=== PATIENT | female | born 1950 | race Caucasian/White ===

== ENCOUNTER 2025-02-28 23:44 | Emergency (ER) | payer MEDICARE, SELFPAY ==
--- NOTE | ~2025-02-28 | XR_ITS ---
EXAMINATION: XR TMJ BI DATE: 03/01/2025 08:27 INDICATION: Retained foreign body in the right ear which is not seen on exam. TECHNIQUE: Patency of the mandible and open and closed mouth lateral views of the left and right temp oromandibular joints were obtained. COMPARISON: None. FINDINGS: Dental restorations at a couple of the remaining teeth along the anterior mandible. Additional tiny m etallic foreign body along the left mandibular ramus. The majority of the teeth are absent with secon los alveolar ridge resulting changes. No other radiopaque foreign bodies. No fracture. Normal alignm ent and motion at the bilateral temporomandibular joints. Slight superior well-pneumatized and there are no air-fluid levels in the mastoids are paranasal sinuses. IMPRESSION: 1. No radiopaque foreign bodies in the region of the external auditory canals. Reviewed, dictated and finalized at location A.
[2025-03-01 00:06] VITALS: BP 86/66; PULSE 72; RESP 16; TEMP 36.7; O2SAT 94
--- OUTSIDE RECORDS SUMMARY | 2025-03-01 07:42 | XMS_ITS | Encounter Summary ---
Author Organization [facility] Address [address] [place] [address] Care Team Providers Care Endless Steamer Tender Name Role Phone Radha Martin MD Primary Care Provider Encounter Details Date Type Department Care Team (Latest Contact Info) Description 11/03/2000 Outpatient Historical HIS [facility] Steven Morris MD [address] [address] Encounter for long-term (current) use of other medications (Primary Dx) Social History Tobacco Use Types Packs/Day Years Used Date Smoking Tobacco: Never Assessed Comments Unknown Sex and Gender Information Value Date Recorded Sex Assigned at Not on file Legal Sex Female 5:15 AM HOME HEALTH CLINICIAN Gender Identity Not on file Sexual Orientation Not on file documented as of this encounter Plan of Treatment Upcoming Encounters Date Type Department Care Team (Late st Contact Info) Description 03/05/2025 1:00 PM CDT Office Visit [facility] [address] [address] Rola Orourke MD [address] [facility] [address] [place] [address] 03/07/2025 1:00 PM CDT Office Visit [facility] Neurosurgery - Medical [place] [address] [facility] [address] [place] [address] Shirley Lux PA [address] [facility] [address] [place] [address] 04/01/2025 2:00 PM CDT Office Visit [facility] Eye Specialists - [facility] [address] - Ophthalmology [address] [facility] [address] [place] [address] Ricky Almazan MD [address] [facility] [address] [place] [address] 05/29/2025 2:30 PM CDT Office Visit [facility] [address] [place] [address] Radha Martin MD [address] [place] [address] 08/28/2025 2:00 PM HOME HEALTH CLINICIAN Office Visit [facility] [address] [address] Radha Martin MD [address] [place] [phone] documented as of this encounter Visit Diagnoses Diagnosis Encounter for long-term (current) use of other medications- Primary documented in this encounter Care Teams Endless Steamer Tender Relationship Specialty Start Date End Date Radha Martin MD [address] [place] [phone] PCP - General Family Practice 11/14/24 documented as of this encounter
--- OUTSIDE RECORDS SUMMARY | 2025-03-01 07:42 | XMS_ITS | Encounter Summary ---
Author Organization [facility] Address [address] [place] [address] Care Team Providers Care Dramatic Director Name Role Phone Radha Martin MD Primary Care Provider Encounter Details Date Type Department Care Team (Late st Contact Info) Description 09/18/[address] [facility] Spine and Pain Management at the [facility] Medicine [address] [place] [address] Richard Moya MD [address] [facility] [place] [address] Social History Tobacco Use Types Packs/Day Years Used Date Smoking Tobacco: Never Smokeless Tobacco: Never Alcohol Use Standard Drinks/Week Comments Never 0 (1 standard drink = 0.6 oz pur e alcohol) Financial Resource Strain Answer Date R ecorded How hard is it for you to pa y for the very basics like food, housing, medical care, and heating? Somewhat hard 12/06/2022 Food Insecurity Answer Date Recorded In the past 12 months, have you worried that your food would run out before you had money to buy more? Patient declined 2022 In the past 12 months, did y ou run out of food and didn't have money to buy more? Patient declined 12/06/2022 Transportation Needs Answer Date Record ed In the past 12 months, has l ack of transportation kept you from medical appointments or from getting medications? Patient declined 12/06/2022 Lack of Transportation (Non-Medical) Not on file 12/06/2022 Comments No Sex and Gender Information Value Date Recorded Sex Assigned at Not on file Legal Sex Female 5:15 AM EQUAL OPPORTUNITY SPECIALIST Gender Identity Not on file Sexual Orientation Not on file documented as of this encounter Plan of Treatment Upcoming Encounters Date Type Department Care Team (Late st Contact Info) Description 03/05/2025 1:00 PM CDT Office Visit [facility] [address] [place] [address] Rola Orourke MD [address] [place] [address] [address] [place] [address] 03/07/2025 1:00 PM CDT Office Visit [facility] Neurosurgery - Medical [place] [address] [place] [address] Shirley Lux PA [address] [facility] [address] [place] [address] 04/01/2025 2:00 PM CDT Office Visit [facility] Eye Specialists - [facility] - Ophthalmology [address] [facility] [address] [place] [address] Ricky Almazan MD [address] [facility] [address] [place] [address] 05/29/2025 2:30 PM CDT Office Visit [facility] [address] [place] [place] [address] Radha Martin MD [address] [place] [address] 08/28/2025 2:00 PM EQUAL OPPORTUNITY SPECIALIST Office Visit [facility] [address] [address] Radha Martin MD [address] [address] documented as of this encounter Visit Diagnoses Not on filedocumented in this encounter Additional Health Concerns Assessment Noted Time PHQ-9 Depression Total Score: 1 12/06/19 23 8:11 PM EQUAL OPPORTUNITY SPECIALIST documented as of this encounter Care Teams Dramatic Director Relationship Specialty Start Date End Date Radha Martin MD [address] [address] PCP - General Family Practice 11/14/24 documented as of this encounter
--- OUTSIDE RECORDS SUMMARY | 2025-03-01 07:42 | XMS_ITS | Encounter Summary ---
Author Organization [employer] Address [address] [place] [address] Care Team Providers Care Medicaid Nurse Name Role Phone Radha Martin MD Primary Care Provider Encounter Details Date Type Department Care Team (Latest Contact Info) Description 06/16/2004 Outpatient Historical HIS [facility] [place], Diana Kuo MD NO ADDRESS ON FILE SYMPTOMATIC FEMALE CLIMACTERIC STATE (Primary Dx) Social History Tobacco Use Types Packs/Day Years Used Date Smoking Tobacco: Never Assessed Comments Unknown Sex and Gender Information Value Date Recorded Sex Assigned at Not on file Legal Sex Female 5:15 AM MATERIAL ENGINEER Gender Identity Not on file Sexual Orientation Not on file documented as of this encounter Plan of Treatment Upcoming Encounters Date Type Department Care Team (Late st Contact Info) Description 03/05/2025 1:00 PM CDT Office Visit [facility] [address] [place] [address] Rola Orourke MD [address] [place] [address] [address] [place] [address] 03/07/2025 1:00 PM CDT Office Visit [facility] Neurosurgery - Medical [place] [address] [facility] [address] [place] [address] Shirley Lux PA [address] [facility] [address] [place], [place] [id number] 04/01/2025 2:00 PM CDT Office Visit [facility] Eye Specialists - [address] - Ophthalmology [address] [facility] [address] [place] [address] Ricky Almazan MD [address] [facility] [address] [place] [address] 05/29/2025 2:30 PM CDT Office Visit [facility] [address], [place] [address] Radha Martin MD [address] [place] [address] 08/28/2025 2:00 PM MATERIAL ENGINEER Office Visit [facility] [address] [address] Radha Martin MD [address] [place] [address] documented as of this encounter Visit Diagnoses Diagnosis Symptomatic menopausal or female climacteric states- Primary documented in this encounter Care Teams Medicaid Nurse Relationship Specialty Start Date End Date Radha Martin MD [address] [place] [address] [address] [address] PCP - General Family Practice 11/14/24 documented as of this encounter
--- OUTSIDE RECORDS SUMMARY | 2025-03-01 07:42 | XMS_ITS | Encounter Summary ---
Author Organization [employer] Address [address] [place] [address] Care Team Providers Care Service Attendant Name Role Phone Radha Martin MD Primary Care Provider Encounter Details Date Type Department Care Team (Latest Contact Info) Description 06/03/2005 Outpatient Historical HIS [facility] [place], Diana Kuo MD NO ADDRESS ON FILE SCREENING MAMM-MAILG NEOPL NEC (Primary Dx) Social History Tobacco Use Types Packs/Day Years Used Date Smoking Tobacco: Never Assessed Comments Unknown Sex and Gender Information Value Date Recorded Sex Assigned at Not on file Legal Sex Female 5:15 AM TRUCK DRIVER INSTRUCTOR Gender Identity Not on file Sexual Orientation Not on file documented as of this encounter Plan of Treatment Upcoming Encounters Date Type Department Care Team (Late st Contact Info) Description 03/05/2025 1:00 PM CDT Office Visit [facility] [address] [place] [address] Rola Orourke MD [address] [place] [address] [address] [place] [address] 03/07/2025 1:00 PM CDT Office Visit [facility] Neurosurgery - Medical [place] [address] [facility] [address] [place] [address] Shirley Lux PA [address] [facility] [address] [place], [place] [id number] 04/01/2025 2:00 PM CDT Office Visit [facility] Eye Specialists - [facility] - Ophthalmology [address] [place] [address] Ricky Almazan MD [address] [place] [address] 05/29/2025 2:30 PM CDT Office Visit [facility] [address] [address] Radha Martin MD [address] [place] [address] 08/28/2025 2:00 PM TRUCK DRIVER INSTRUCTOR Office Visit [facility] [address] [address] Radha Martin MD [address] [place] [address] documented as of this encounter Visit Diagnoses Diagnosis Other screening mammogram- Primary documented in this encounter Care Teams Service Attendant Relationship Specialty Start Date End Date Radha Martin MD [address] [place] [address] PCP - General Family Practice 11/14/24 documented as of this encounter
--- OUTSIDE RECORDS SUMMARY | 2025-03-01 07:42 | XMS_ITS | Encounter Summary ---
Author Organization [facility] Address [address] [place] [address] Care Team Providers Care Stringing Machine Tender Name Role Phone Radha Martin MD Primary Care Provider Encounter Details Date Type Department Care Team (Latest Contact Info) Description 04/04/2000 Outpatient Historical [facility] Baylee Peterson MD NO ADDRESS ON FILE Pain in limb (Primary Dx) Social History Tobacco Use Types Packs/Day Years Used Date Smoking Tobacco: Never Assessed Comments Unknown Sex and Gender Information Value Date Recorded Sex Assigned at Not on file Legal Sex Female 5:15 AM PHARMACIST PER DIEM Gender Identity Not on file Sexual Orientation Not on file documented as of this encounter Plan of Treatment Upcoming Encounters Date Type Department Care Team (Late st Contact Info) Description 03/05/2025 1:00 PM CDT Office Visit [facility] [address] [place] [address] Rola Orourke MD [facility] [address] [place] [address] 03/07/2025 1:00 PM CDT Office Visit [facility] Neurosurgery - Medical [place] [address] [facility] [address] [place] [address] Shirley Lux PA [address] [facility] [address] [place], [place] [id number] 04/01/2025 2:00 PM CDT Office Visit [facility] Eye Specialists - [address] - Ophthalmology [address] [facility] [address] [place] [address] Ricky Almazan MD [address] [facility] [address] [place] [address] 05/29/2025 2:30 PM CDT Office Visit [facility] [address] [address] Radha Martin MD [address] [place] [address] 08/28/2025 2:00 PM PHARMACIST PER DIEM Office Visit [facility] [address] [address] Radha Martin MD [address] [place] [phone] documented as of this encounter Visit Diagnoses Diagnosis Pain in limb- Primary documented in this encounter Care Teams Stringing Machine Tender Relationship Specialty Start Date End Date Radha Martin MD [address] [place] [phone] PCP - General Family Practice 11/14/24 documented as of this encounter
--- OUTSIDE RECORDS SUMMARY | 2025-03-01 07:42 | XMS_ITS | Encounter Summary ---
Author Organization [employer] Address [address] [place] [address] Care Team Providers Care Trap Setter Name Role Phone Radha Martin MD Primary Care Provider Encounter Details Date Type Department Care Team (Latest Contact Info) Description 05/16/2000 Outpatient Historical [facility] Baylee Peterson MD NO ADDRESS ON FILE Pain in limb (Primary Dx) Social History Tobacco Use Types Packs/Day Years Used Date Smoking Tobacco: Never Assessed Comments Unknown Sex and Gender Information Value Date Recorded Sex Assigned at Not on file Legal Sex Female 5:15 AM SWINE EXTENSION FIELD SPECIALIST Gender Identity Not on file Sexual Orientation Not on file documented as of this encounter Plan of Treatment Upcoming Encounters Date Type Department Care Team (Late st Contact Info) Description 03/05/2025 1:00 PM CDT Office Visit [facility] [address] [place] [address] Rola Orourke MD [facility] [address] [place] [address] 03/07/2025 1:00 PM CDT Office Visit [facility] Neurosurgery - Medical [place] [address] [facility] [address] [place] [address] Shirley Lux PA [address] [facility] [address] [place], [place] [id number] 04/01/2025 2:00 PM CDT Office Visit [facility] Eye Specialists - [address] - Ophthalmology [address] [facility] [address] [place] [address] Ricky Almazan MD [address] [facility] [address] [place] [address] 05/29/2025 2:30 PM CDT Office Visit [facility] [address] [address] Radha Martin MD [address] [place] [address] 08/28/2025 2:00 PM SWINE EXTENSION FIELD SPECIALIST Office Visit [facility] [address] [address] Radha Martin MD [address] [place] [phone] documented as of this encounter Visit Diagnoses Diagnosis Pain in limb- Primary documented in this encounter Care Teams Trap Setter Relationship Specialty Start Date End Date Radha Martin MD [address] [place] [address] PCP - General Family Practice 11/14/24 documented as of this encounter
--- OUTSIDE RECORDS SUMMARY | 2025-03-01 07:42 | XMS_ITS | Encounter Summary ---
Author Organization [employer] Address [address] [place] [address] Care Team Providers Care Recovery Assistant Name Role Phone Radha Martin MD Primary Care Provider Encounter Details Date Type Department Care Team (Latest Contact Info) Description 03/15/2007 Outpatient Historical HIS [facility] DAY[facility] [place], Diana Kuo MD NO ADDRESS ON FILE Other Screening Mammogram (Primary Dx) Social History Tobacco Use Types Packs/Day Years Used Date Smoking Tobacco: Never Assessed Comments Unknown Sex and Gender Information Value Date Recorded Sex Assigned at Not on file Legal Sex Female 5:15 AM TRAFFIC WORKFORCE REPRESENTATIVE Gender Identity Not on file Sexual Orientation Not on file documented as of this encounter Plan of Treatment Upcoming Encounters Date Type Department Care Team (Late st Contact Info) Description 03/05/2025 1:00 PM CDT Office Visit [facility] [address] [place] [address] Rola Orourke MD [address] [place] [address] [address] [place] [address] 03/07/2025 1:00 PM CDT Office Visit [facility] Neurosurgery - Medical [place] [address] [facility] [address] [place] [address] Shirley Lux PA [address] [facility] [address] [place], [place] [id number] 04/01/2025 2:00 PM CDT Office Visit [facility] Eye Specialists - [address] - Ophthalmology [address] [facility] [address] [place] [address] Ricky Almazan MD [address] [facility] [address] [place] [address] 05/29/2025 2:30 PM CDT Office Visit [facility] [address] [address] Radha Martin MD [address] [place] [address] 08/28/2025 2:00 PM TRAFFIC WORKFORCE REPRESENTATIVE Office Visit [facility] [address] [address] Radha Martin MD [address] [place] [address] documented as of this encounter Visit Diagnoses Diagnosis Other screening mammogram- Primary documented in this encounter Care Teams Recovery Assistant Relationship Specialty Start Date End Date Radha Martin MD [address] [place] [address] PCP - General Family Practice 11/14/24 documented as of this encounter
--- OUTSIDE RECORDS SUMMARY | 2025-03-01 07:42 | XMS_ITS | Encounter Summary ---
Author Organization [employer] Address [address] [place] [address] Care Team Providers Care Waistband Setter Name Role Phone Radha Martin MD Primary Care Provider Encounter Details Date Type Department Care Team (Latest Contact Info) Description 2000 Outpatient Historical [facility] Baylee Peterson MD NO ADDRESS ON FILE Pain in limb (Primary Dx) Social History Tobacco Use Types Packs/Day Years Used Date Smoking Tobacco: Never Assessed Comments Unknown Sex and Gender Information Value Date Recorded Sex Assigned at Not on file Legal Sex Female 5:15 AM BEAUTY ADVISOR Gender Identity Not on file Sexual Orientation Not on file documented as of this encounter Plan of Treatment Upcoming Encounters Date Type Department Care Team (Late st Contact Info) Description 03/05/2025 1:00 PM CDT Office Visit [facility] [address] [place] [address] Rola Orourke MD [facility] [address] [place] [address] 03/07/2025 1:00 PM CDT Office Visit [facility] Neurosurgery - Medical [place] [address] [facility] [address] [place] [address] Shirley Lux PA [address] [facility] [address] [place], [place] [id number] 04/01/2025 2:00 PM CDT Office Visit [facility] Eye Specialists - [address] - Ophthalmology [address] [facility] [address] [place] [address] Ricky Almazan MD [address] [facility] [address] [place] [address] 05/29/2025 2:30 PM CDT Office Visit [facility] [address] [address] Radha Martin MD [address] [place] [address] 08/28/2025 2:00 PM BEAUTY ADVISOR Office Visit [facility] [address] [address] Radha Martin MD [address] [place] [address] documented as of this encounter Visit Diagnoses Diagnosis Pain in limb- Primary documented in this encounter Care Teams Waistband Setter Relationship Specialty Start Date End Date Radha Martin MD [address] [place] [address] PCP - General Family Practice 11/14/24 documented as of this encounter
--- OUTSIDE RECORDS SUMMARY | 2025-03-01 07:42 | XMS_ITS | Encounter Summary ---
Author Organization [facility] Address [address] [place] [address] Care Team Providers Care Manager Product Support Name Role Phone Radha Martin MD Primary Care Provider Encounter Details Date Type Department Care Team (Late st Contact Info) Description 03/08/2002 Outpatient Historical HIS [facility]O Cardenas, Nicole Griffiths MD NO ADDRESS ON FILE ABNORMAL WEIGHT GAIN (Primary Dx) Social History Tobacco Use Types Packs/Day Years Used Date Smoking Tobacco: Never Assessed Comments Unknown Sex and Gender Information Value Date Recorded Sex Assigned at Not on file Legal Sex Female 5:15 AM INFANT AND TODDLER TEACHER Gender Identity Not on file Sexual Orientation Not on file documented as of this encounter Plan of Treatment Upcoming Encounters Date Type Department Care Team (Late st Contact Info) Description 03/05/2025 1:00 PM CDT Office Visit [facility] [address] [place] [address] Rola Orourke MD [address] [place] [address] [address] [place] [address] 03/07/2025 1:00 PM CDT Office Visit [facility] Neurosurgery - Medical [place] [address] [facility] [address] [place] [address] Shirley Lux PA [address] [facility] [address] [place], [place] [phone] 04/01/2025 2:00 PM CDT Office Visit [facility] Eye Specialists - [address] - Ophthalmology [address] [facility] [address] [place] [address] Ricky Almazan MD [address] [facility] [address] [place] [address] 05/29/2025 2:30 PM CDT Office Visit [facility] [address] [address] Radha Martin MD [address] [place] [address] 08/28/2025 2:00 PM INFANT AND TODDLER TEACHER Office Visit [facility] [address] [address] Radha Martin MD [address] [place] [address] documented as of this encounter Visit Diagnoses Diagnosis Abnormal weight gain- Primary documented in this encounter Care Teams Manager Product Support Relationship Specialty Start Date End Date Radha Martin MD [address] [place] [address] PCP - General Family Practice 11/14/24 documented as of this encounter
--- OUTSIDE RECORDS SUMMARY | 2025-03-01 07:42 | XMS_ITS | Encounter Summary ---
Author Organization [employer] Address [address] [place] [address] Care Team Providers Care Cardiovascular Sonographer Name Role Phone Radha Martin MD Primary Care Provider Encounter Details Date Type Department Care Team (Latest Contact Info) Description 06/05/2006 Outpatient Historical HIS [facility] [place], Diana Kuo MD NO ADDRESS ON FILE Other Screening Mammogram (Primary Dx) Social History Tobacco Use Types Packs/Day Years Used Date Smoking Tobacco: Never Assessed Comments Unknown Sex and Gender Information Value Date Recorded Sex Assigned at Not on file Legal Sex Female 5:15 AM ORACLE ARCHITECT Gender Identity Not on file Sexual Orientation Not on file documented as of this encounter Plan of Treatment Upcoming Encounters Date Type Department Care Team (Late st Contact Info) Description 03/05/2025 1:00 PM CDT Office Visit [facility] [address] [place] [address] Rola Orourke MD [address] [place] [address] [address] [place] [address] 03/07/2025 1:00 PM CDT Office Visit [facility] Neurosurgery - Medical [place] [address] [facility] [address] [place] [address] Shirley Lxu PA [address] [facility] [address] [place], [place] [id number] 04/01/2025 2:00 PM CDT Office Visit [facility] - [address] - Ophthalmology [address] [facility] [address] [place] [phone] Ricky Almazan MD [address] [facility] [address] [place] [address] 05/29/2025 2:30 PM CDT Office Visit [facility] [address] [address] Radha Martin MD [address] [place] [address] 08/28/2025 2:00 PM ORACLE ARCHITECT Office Visit [facility] [address] [address] Radha Martin MD [address] [place] [address] documented as of this encounter Visit Diagnoses Diagnosis Other screening mammogram- Primary documented in this encounter Care Teams Cardiovascular Sonographer Relationship Specialty Start Date End Date Radha Martin MD [address] [place] [address] PCP - General Family Practice 11/14/24 documented as of this encounter
--- OUTSIDE RECORDS SUMMARY | 2025-03-01 07:42 | XMS_ITS | Encounter Summary ---
Author Organization [employer] Address [address] [place] [address] Care Team Providers Care Products Mechanical Design Engineer Name Role Phone Radha Martin MD Primary Care Provider Encounter Details Date Type Department Care Team (Latest Contact Info) Description 04/14/2000 Outpatient Historical HIS [facility] Baylee Peterson MD NO ADDRESS ON FILE Pain in limb (Primary Dx) Social History Tobacco Use Types Packs/Day Years Used Date Smoking Tobacco: Never Assessed Comments Unknown Sex and Gender Information Value Date Recorded Sex Assigned at Not on file Legal Sex Female 5:15 AM TOOL ROOM SUPERVISOR Gender Identity Not on file Sexual Orientation Not on file documented as of this encounter Plan of Treatment Upcoming Encounters Date Type Department Care Team (Late st Contact Info) Description 03/05/2025 1:00 PM CDT Office Visit [facility] [address] [place] [address] Rola Orourke MD [facility] [address] [place] [address] 03/07/2025 1:00 PM CDT Office Visit [facility] Neurosurgery - Medical [place] [address] [facility] [address] [place] [address] Shirley Lux PA [address] [facility] [address] [place], [place] [id number] 04/01/2025 2:00 PM CDT Office Visit [facility] Eye Specialists - [address] - Ophthalmology [address] [facility] [address] [place] [phone] Ricky Almazan MD [address] [facility] [address] [place] [address] 05/29/2025 2:30 PM CDT Office Visit [facility] [address] [address] Radha Martin MD [address] [place] [address] 08/28/2025 2:00 PM TOOL ROOM SUPERVISOR Office Visit [facility] [address] [address] Radha Martin MD [address] [place] [phone] documented as of this encounter Visit Diagnoses Diagnosis Pain in limb- Primary documented in this encounter Care Teams Products Mechanical Design Engineer Relationship Specialty Start Date End Date Radha Martin MD [address] [place] [address] PCP - General Family Practice 11/14/24 documented as of this encounter
--- OUTSIDE RECORDS SUMMARY | 2025-03-01 07:43 | XMS_ITS | Encounter Summary ---
Author Organization [email or web address] Address [address] [place] [address] Care Team Providers Care Market Research Coordinator Name Role Phone Radha Martin MD Primary Care Provider Encounter Details Date Type Department Care Team (Latest Contact Info) Description 07/26/2003 Outpatient Historical HIS [facility] GalabbetoCarrington rodriguez MD [address] [facility] [address] [place] [address] ENTHESOPATHY OF HIP (Primary Dx) Social History Tobacco Use Types Packs/Day Years Used Date Smoking Tobacco: Never Assessed Comments Unknown Sex and Gender Information Value Date Recorded Sex Assigned at Not on file Legal Sex Female 5:15 AM SPRING FORMER Gender Identity Not on file Sexual Orientation Not on file documented as of this encounter Plan of Treatment Upcoming Encounters Date Type Department Care Team (Late st Contact Info) Description 03/05/2025 1:00 PM CDT Office Visit [facility] [address] [place] [address] Rola Orourke MD [address] [facility] [address] [place] [address] 03/07/2025 1:00 PM CDT Office Visit [facility] Neurosurgery - Medical [place] [address] [facility] [address] [place] [address] Shirley Lux PA [address] [facility] [address] [place] [address] 04/01/2025 2:00 PM CDT Office Visit [facility] Eye Specialists - [facility] [address] - Ophthalmology [address] [facility] [address] [place] [address] Ricky Almazan MD [address] [facility] [address] [place] [address] 05/29/2025 2:30 PM CDT Office Visit [facility] [address] [place] [address] Radha Martin MD [address] [place] [address] 08/28/2025 2:00 PM SPRING FORMER Office Visit [facility] [address] [address] Radha Martin MD [address] [place] [phone] documented as of this encounter Visit Diagnoses Diagnosis Enthesopathy of hip region- Primary documented in this encounter Care Teams Market Research Coordinator Relationship Specialty Start Date End Date Radha Martin MD [address] [place] [phone] PCP - General Family Practice 11/14/24 documented as of this encounter
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
--- OUTSIDE RECORDS SUMMARY | 2025-03-01 07:43 | XMS_ITS | Encounter Summary ---
Author Organization [employer] Address 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) Social History Tobacco Use Types Packs/Day Years Used Date Smoking Tobacco: Never Assessed Comments Unknown Sex and Gender Information Value Date Recorded Sex Assigned at Not on file Legal Sex Female 5:15 AM SPOOLER RUBBER STRAND Gender Identity Not on file Sexual Orientation Not on file documented as of this encounter Plan of Treatment Upcoming Encounters Date Type Department Care Team (Late st Contact Info) Description 03/05/2025 1:00 PM CDT Office Visit [facility] [address] [place] [address] Rola Orourke MD [address] [place] [address] [address] [place] [address] 03/07/2025 1:00 PM CDT Office Visit [facility] Neurosurgery - Medical [place] [address] [facility] [address] [place] [address] Shirley Lux PA [address] [facility] [address] [place], [place] [id number] 04/01/2025 2:00 PM CDT Office Visit [facility] Eye Specialists - [facility] - Ophthalmology [address] [facility] [address] [place] [address] Ricky Almazan MD [address] [facility] [address] [place] [address] 05/29/2025 2:30 PM CDT Office Visit [facility] [address] [address] Radha Martin MD [address] [place] [address] 08/28/2025 2:00 PM SPOOLER RUBBER STRAND Office Visit [facility] [address] [address] Radha Martin MD [address] [place] [phone] documented as of this encounter Visit Diagnoses Diagnosis Abnormal Papanicolaou smear of cervix and cervical HPV- Primary documented in this encounter Care Teams Hemodialysis Patient Care Specialist Relationship Specialty Start Date End Date Radha Martin MD [address] [place] [address] PCP - General Family Practice 11/14/24 documented as of this encounter
--- OUTSIDE RECORDS SUMMARY | 2025-03-01 07:43 | XMS_ITS | Encounter Summary ---
Author Organization [facility] Address [address] [place] [address] Care Team Providers Care Coding Advisor Name Role Phone Radha Martin MD Primary Care Provider Reason for Visit * Reason Comments Provider Call Encounter Details Date Type Department Care Team (Late st Contact Info) Description 06/25/2024 Telephone [facility] Medicine [place] [address] [facility] [address] [place] [address] Rach Hardy, [address] [address] Provider Call Social History Tobacco Use Types Packs/Day Years [...] who hurts you emotionally and/or physically? No 05/28/2024 Comments No Sex and Gender Information Value Date Recorded Sex Assigned at Not on file Legal Sex Female 5:15 AM DRUPAL PHP DEVELOPER Gender Identity Not on file Sexual Orientation Not on file documented as of this encounter Miscellaneous Notes * Telephone Encounter - Rach Hardy DO - 06/27/2024 5:06 PM CDT Ok, approved. Please see orders from this encounter. JLK Orders Placed This Encounter ALPRAZolam (Xanax) 0.5 mg tablet * Telephone Encounter - Jessica Sales - 06/26/2024 10:29 AM CDT Alprazolam LR 06/09/2024 # 30 ([facility]) YARELIS 08/24/2023 Labs 03/01/2024 Appointment 07/17/24 * Telephone Encounter - Flor Crenshaw - 06/25/2024 3:26 PM CDT Copied from [facility] #[id number]. Topic: [id number] Call >> Jun 25, 2024 3:24 PM Flor Rivera wrote: Caller is requesting to speak with Clinical Care Team. Caller Name: riana castle [facility] pharmacy Callback Number: [phone] (home) [phone] (work) Clinician Type: Pharmacy - Medication Question Call Notes: ALPRAZolam (Xanax) 0.5 mg tablet refill request and statues of rx documented in this encounter Plan of Treatment Upcoming Encounters Date Type Department Care Team (Late st Contact Info) Description 03/05/2025 1:00 PM CDT Office Visit [facility] [address] [place] [phone] Rola Orourke MD [address] [place] [address] [address] [place] [address] 03/07/2025 1:00 PM CDT Office Visit [facility] Neurosurgery - Medical [place] [address] [facility] [address] [place] [address] Shirley Lux AL [address] [facility] [address] [place] [address] 04/01/2025 2:00 PM CDT Office Visit [facility] Eye Specialists - [facility] [address] - Ophthalmology [address] [facility] [address] [place] [address] Ricky Almazan MD [address] [facility] [address] [place] [address] 05/29/2025 2:30 PM CDT Office Visit [facility] [address] [place] [address] Radha Martin MD [address] [place] [phone] 08/28/2025 2:00 PM DRUPAL PHP DEVELOPER Office Visit [facility] [address] [place] [phone] Radha Martin MD [address] [place], [place] [address] [place] [address] documented as of this encounter Visit Diagnoses Diagnosis Insomnia, unspecified type documented in this encounter Additional Health Concerns Assessment Noted Time PHQ-9 Depression Total Score: 1 06/06/20 24 9:00 AM CDT documented as of this encounter Care Teams Coding Advisor Relationship Specialty Start Date End Date Radha Martin MD [facility] [address] [address] PCP - General Family Practice 11/14/24 documented as of this encounter
--- OUTSIDE RECORDS SUMMARY | 2025-03-01 07:43 | XMS_ITS | Encounter Summary ---
Author Organization [facility] Address [address] [place] [address] Care Team Providers Care Registered Dental Hygienist Name Role Phone Radha Martin MD Primary Care Provider Encounter Details Date Type Department Care Team (Late st Contact Info) Description 03/31/2000 Outpatient Historical HIS OP SPORTS & ORTHO BrodieSteven muñiz MD [address] [place] [address] Social History Tobacco Use Types Packs/Day Years Used Date Smoking Tobacco: Never Assessed Comments Unknown Sex and Gender Information Value Date Recorded Sex Assigned at Not on file Legal Sex Female 5:15 AM ICE HOCKEY COACH Gender Identity Not on file Sexual Orientation Not on file documented as of this encounter Plan of Treatment Upcoming Encounters Date Type Department Care Team (Late Contact Info) Description 03/05/2025 1:00 PM CDT Office Visit [facility] [address] [place] [address] Rola Orourke MD [address] [facility] [address] [place] [address] 03/07/2025 1:00 PM CDT Office Visit [facility] Neurosurgery - Medical [place] [address] [facility] [address] [place] [address] Shirley Lux PA [address] [facility] [address] [place] [address] 04/01/2025 2:00 PM CDT Office Visit [facility] Eye Specialists - [facility] - Ophthalmology [address] [facility] [address] [place] [address] Ricky Almazan MD [address] [facility] [address] [place] [address] 05/29/2025 2:30 PM CDT Office Visit [facility] [address] [place] [address] Radha Martin MD [address] [place] [address] 08/28/2025 2:00 PM ICE HOCKEY COACH Office Visit [facility] [address] [address] aRdha Martin MD [address] [place] [phone] documented as of this encounter Visit Diagnoses Not on filedocumented in this encounter Care Teams Registered Dental Hygienist Relationship Specialty Start Date End Date Radha Martin MD [address] [place] [phone] PCP - General Family Practice 11/14/24 documented as of this encounter
--- OUTSIDE RECORDS SUMMARY | 2025-03-01 07:43 | XMS_ITS | Encounter Summary ---
Author Organization [employer] Address [address] [place] [address] Care Team Providers Care Bone Puller Name Role Phone Radha Martin MD Primary Care Provider Encounter Details Date Type Department Care Team (Latest Contact Info) Description 01/20/2000 Outpatient Historical HIS [facility]UCLE[facility] Steven Calloway MD [address] [address] Pain in limb (Primary Dx) Social History Tobacco Use Types Packs/Day Years Used Date Smoking Tobacco: Never Assessed Comments Unknown Sex and Gender Information Value Date Recorded Sex Assigned at Not on file Legal Sex Female 5:15 AM CONCRETE PIPE MACHINE OPERATOR Gender Identity Not on file Sexual Orientation Not on file documented as of this encounter Plan of Treatment Upcoming Encounters Date Type Department Care Team (Late st Contact Info) Description 03/05/2025 1:00 PM CDT Office Visit [facility] [address] [place] [address] Rola Orourke MD [address] [facility] [address] [place] [address] 03/07/2025 1:00 PM CDT Office Visit [facility] Neurosurgery - Medical [place] [address] [facility] [address] [place] [address] Shirley Lux PA [address] [facility] [address] [place] [address] 04/01/2025 2:00 PM CDT Office Visit [facility] Eye Specialists - [facility] [address] - Ophthalmology [address] [facility] [address] [place] [address] Ricky Almazan MD [address] [facility] [address] [place] [address] 05/29/2025 2:30 PM CDT Office Visit [facility] [address], [place] [address] Radha Martin MD [address] [place] [address] 08/28/2025 2:00 PM CONCRETE PIPE MACHINE OPERATOR Office Visit [facility] [address] [address] Radha Martin MD [address] [place] [phone] documented as of this encounter Visit Diagnoses Diagnosis Pain in limb- Primary documented in this encounter Care Teams Bone Puller Relationship Specialty Start Date End Date Radha Martin MD [address] [place] [phone] PCP - General Family Practice 11/14/24 documented as of this encounter
--- OUTSIDE RECORDS SUMMARY | 2025-03-01 07:43 | XMS_ITS | Encounter Summary ---
Author Organization [employer] Address 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) Social History Tobacco Use Types Packs/Day Years Used Date Smoking Tobacco: Never Assessed Comments Unknown Sex and Gender Information Value Date Recorded Sex Assigned at Not on file Legal Sex Female 5:15 AM LIGHT OIL OPERATOR Gender Identity Not on file Sexual Orientation Not on file documented as of this encounter Plan of Treatment Upcoming Encounters Date Type Department Care Team (Late st Contact Info) Description 03/05/2025 1:00 PM CDT Office Visit [facility] [address] [place] [address] Rola Orourke MD [address] [place] [address] [address] [place] [address] 03/07/2025 1:00 PM CDT Office Visit [facility] Neurosurgery - Medical [place] [address] [facility] [address] [place] [address] Shirley Lux PA [address] [facility] [address] [place], [place] [id number] 04/01/2025 2:00 PM CDT Office Visit [facility]ists - [facility] - Ophthalmology [address] [place] [phone] Ricky Almazan MD [address] [place] [address] 05/29/2025 2:30 PM CDT Office Visit [facility] [address] [phone] Radha Martin MD [address] [place] [phone] 08/28/2025 2:00 PM LIGHT OIL OPERATOR Office Visit [facility] [address] [phone] Radha Martin MD [address] [place] [phone] documented as of this encounter Visit Diagnoses Diagnosis Abnormal Papanicolaou smear of cervix and cervical HPV- Primary documented in this encounter Care Teams Anaesthetic Technician Relationship Specialty Start Date End Date Radha Martin MD [address] [place] [phone] PCP - General Family Practice 11/14/24 documented as of this encounter
--- OUTSIDE RECORDS SUMMARY | 2025-03-01 07:43 | XMS_ITS | Encounter Summary ---
Author Organization [employer] [facility] Address [address] [place] [address] Care Team Providers Care Procedures Analyst Name Role Phone Radha Martin MD Primary Care Provider Encounter Details Date Type Department Care Team (Latest Contact Info) Description 05/26/2004 Outpatient Historical [facility] Malloy, Kelsey King MD NO ADDRESS ON FILE PURE HYPERCHOLESTEROLEM (Primary Dx) Social History Tobacco Use Types Packs/Day Years Used Date Smoking Tobacco: Never Assessed Comments Unknown Sex and Gender Information Value Date Recorded Sex Assigned at Not on file Legal Sex Female 5:15 AM CAREER DEVELOPMENT ENGINEER Gender Identity Not on file Sexual Orientation Not on file documented as of this encounter Plan of Treatment Upcoming Encounters Date Type Department Care Team (Late st Contact Info) Description 03/05/2025 1:00 PM CDT Office Visit [facility] [address] [place] [address] [facility] [facility] [address] [place] [address] 03/07/2025 1:00 PM CDT Office Visit [facility] Neurosurgery - Medical [place] [address] [facility] [address] [place] [address] Shirley Lux PA [address] [facility] [address] [place], [place] [id number] 04/01/2025 2:00 PM CDT Office Visit [facility] - [address] - Ophthalmology [address] [facility] [address] [place] [phone] Ricky Almazan MD [address] [facility] [address] [facility] [address] [place] [address] 05/29/2025 2:30 PM CDT Office Visit [facility] [address] [phone] Radha Martin MD [address] [place] [phone] 08/28/2025 2:00 PM CAREER DEVELOPMENT ENGINEER Office Visit [facility] [address] [phone] Radha Martin MD [address] [place] [phone] documented as of this encounter Visit Diagnoses Diagnosis Pure hypercholesterolemia- Primary documented in this encounter Care Teams Procedures Analyst Relationship Specialty Start Date End Date Radha Martin MD [address] [place] [phone] PCP - General Family Practice 11/14/24 documented as of this encounter
--- OUTSIDE RECORDS SUMMARY | 2025-03-01 07:43 | XMS_ITS | Clinical Summary ---
Author Organization [facility] e Address [address] [place] [address] Care Team Providers Care Senior Oracle Applications Developer Name Role Phone Radha Martin MD Primary Care Provider Allergies No known active allergies Medications Euthyrox 100 mcg tabletIndicati ons:Hypothyroi dism, unspecified type take 1 tablet every day 90 Tablet 3 03/25/20 24 Active Blood-Glucose Meter (Accu-Chek Guide Me Glucose Mtr)Indication s:Type 2 diabetes mellitus with hyperglycemia, without long-term current use of insulin (CMS/HCC) Use as directed 4 times a day 1 Each 1 06/18/20 24 Active DULoxetine (CYMBALTA) 60 mg Capsule, Delayed Release(E.C.)I ndications:Typ e 2 diabetes mellitus with diabetic polyneuropathy , without long-term current use of insulin (CMS/HCC) TAKE 1 CAPSULE EVERY DAY 100 Capsule 3 06/28/20 24 Active Lancing Device with Lancets (Accu-Chek Multiclix Lancet) KitIndications :Type 2 diabetes mellitus with diabetic polyneuropathy , without long-term current use of insulin (CMS/HCC) TEST BLOOD SUGAR 4 TIMES DAILY BEFORE MEALS AND AT BEDTIME 400 Each 3 07/18/20 24 Active blood sugar diagnostic (Accu-Chek Guide test strips) Strip TEST BLOOD SUGAR FOUR TIMES DAILY BEFORE MEALS AND AT BEDTIME 400 Strip 3 08/08/20 24 Active traZODone (DESYREL) 100 mg tablet TAKE 1 TABLET EVERY NIGHT NEEDED FOR INSOMNIA 100 Tablet 3 08/08/20 24 Active lisinopriL (PRINIVIL) 10 mg tablet Take 1 Tablet (10 mg) by mouth daily. 100 Tablet 3 11/22/19 25 Active tirzepatide (Mounjaro) 15 mg/0.5 mL Pen InjectorIndica tions:Type 2 diabetes mellitus with diabetic polyneuropathy , without long-term current use of insulin ([facility]) Inject 0.5 mL (15 mg) by subcutaneous injection every 7 days. 6 mL 3 11/28/19 25 Active dapagliflozin propanediol (Farxiga) 10 mg TabletIndicati ons:Stage 3a chronic kidney disease (CKD) ([facility]) Take 1 Tablet (10 mg) by mouth daily in the morning. 100 Tablet 3 11/29/19 25 Active atorvastatin (LIPITOR) 40 mg tablet Take 1 Tablet (40 mg) by mouth daily. 100 Tablet 3 01/10/20 25 Active ALPRAZolam (Xanax) 0.5 mg tabletIndicati ons:Insomnia, unspecified type,Postopera tive pain Take 1 Tablet (0.5 mg) by mouth 2 times daily as needed for Anxiety or Insomnia. 40 Tablet 5 12:29 PM CDT 02/27/20 25 Active tiZANidine (ZANAFLEX) 4 mg Tablet Take 1 Tablet (4 mg) by mouth 3 times daily as needed for Spasm. 60 Tablet 5 3:14 PM CDT 02/27/20 25 Active ciprofloxacin HCl (CIPRO) 500 mg tablet Take 1 Tablet (500 mg) by mouth every 12 hours for 6 days. 12 Tablet 5 3:14 PM CDT 02/27/20 25 2024 Active tamsulosin (FLOMAX) 0.4 mg capsule Take 1 Capsule (0.4 mg) by mouth daily after supper. 30 Capsule 5 3:14 PM CDT 02/27/20 25 Active methylPREDNISo lone (MEDROL DOSPACK) 4 mg Tablets, Dose Pack Take as directed 21 Tablet 5 3:14 PM CDT 02/27/20 25 Active ALPRAZolam (Xanax) 0.5 mg tabletIndicati ons:Insomnia, unspecified type Take 1 Tablet (0.5 mg) by mouth nightly as needed for Anxiety or Insomnia. 90 Tablet 10/24/19 25 2024 Discontinued(R eorder) multivitamin (DAILY-TOM) tablet Take 1 Tablet by mouth daily. 2024 Discontinued TURMERIC ORAL Take by mouth. 2024 Discontinued coenzyme Q10 Capsule Take 10 mg by mouth daily. 2024 Discontinued metFORMIN (GLUCOPHAGE) 850 mg tablet Take 1 Tablet (850 mg) by mouth daily with breakfast. DIABETES 100 Tablet 3 11/22/19 25 2024 Discontinued tiZANidine (ZANAFLEX) 4 mg Tablet Take 1 Tablet (4 mg) by mouth 3 times daily as needed for Spasm. 90 Tablet 1 01/02/20 25 2024 Discontinued Active Problems Problem Noted Date Diagnosed Date Acute cystitis without hematuria 02/26/2025 Constipation 02/11/2025 Acute urinary retention 02/11/2025 Anxiety 02/11/2025 Protein-calorie malnutrition, severe 02/09/2025 Lumbar stenosis 02/05/2025 Stage 3a chronic kidney disease 11/22/2024 Neurogenic claudication due to lumbar spinal salvador nosis 11/14/2024 Atherosclerosis of aorta 07/16/2024 Overview (11/14/2024): 12/09/22 CT Chest/ABD/PELVIS: Thoracic aorta is mildly atherosclerotic S/P total hysterectomy and bilateral salpingo-oo phorectomy 12/08/2021 Hypothyroidism 12/08/2021 Type 2 diabetes mellitus wit h diabetic polyneuropathy, without long-term current use of insulin 02/01/2021 Age-related osteoporosis wit hout current pathological fracture 01/17/2019 HTN (hypertension), benign 01/01/2018 Hyperlipidemia 01/01/2018 Insomnia 01/01/2018 Multiple thyroid nodules 01/01/2018 Peripheral polyneuropathy 01/01/2018 Resolved Problems Problem Noted Date Diagnosed Date Resolved Date Malignant neoplasm of left ovary 10/13/2022 10/13/2022 Mass of left ovary 02/09/2021 Generalized abdominal pain 01/25/2021 0 02/01/2021 Left tubo-ovarian mass 01/25/202112/08 Type 2 diabetes mellitus wit h hyperglycemia, without long-term current use of insulin 03/19/2020 02/01/2021 Severe obesity (BMI 35.0-39. 9) with comorbidity 01/01/2018 12/08/2021 Encounters Date Type Department Care Team Description 02/26/2025 Telephone [facility] [address] [place] [phone] Radha Martin MD Clinical Consult Before Scheduling 02/26/2025 Refill [facility] Neurosurgery - [facility] [place] [address] [facility] [address] [place] [address] Gavi Schmidt PA Postoperative pain (Primary Dx); Insomnia, unspecified type 02/25/2025 Telephone [facility] Neurosurgery - [facility] [place] [address] [facility] [address] [place] [phone] Moses Fontaine MD patient discharge concern 02/25/2025 Hospital Encounter [facility] Comprehensive Unit [address] [place] [address] Cecilio Pinzon, 02/24/2025 Abstract [facility] Neurosurgery - [facility] [place] [address] [facility] [address] [place] [address] Moses Fontaine MD 02/18/2025 External Device Data STL ABSTRACTION Provider, Abstract 02/14/2025 11:47 AM CDT Anesthesia Event [facility] Interventional Radiology S [facility] [address] [place] [address] Haley Gutierres MD 02/11/2025 External Device Data STL ABSTRACTION Provider, Abstract 02/11/2025 External Device Data STL ABSTRACTION Provider, Abstract 02/07/2025 Travel 02/05/2025 6:56 AM CDT Anesthesia Event [facility] Operating Room [address] [place] [address] Mariya Mueller MD Turnbough, Christopher J, PA 02/05/2025 6:30 AM CDT - 02/05/2025 11:13 AM CDT Surgery [facility] Operating Room [address] [place] [address] Moses Fontaine MD LUMBAR DECOMPRESSION LAMINECTOMY 02/05/2025 5:43 AM CDT - 02/26/2025 4:45 PM CDT Hospital Encounter [facility] Neurosurgery [address] [place] [address] Moses Fontaine MD Lumbar stenosis Discharge Disposition: Home or Self Care 01/24/2025 2:40 PM CDT - 01/24/2025 11:59 PM CDT Hospital Encounter [facility] S [facility] [address] [place] [address] Moses Fontaine MD Discharge Disposition: Home or Self Care 01/06/2025 Refill [facility] [address] [facility] [address] [place] [phone] Radha Martin MD Hyperlipidemia, unspecified hyperlipidemia type (Primary Dx) 01/03/2025 12:30 PM CDT - 01/03/2025 11:59 PM CDT Hospital Encounter [facility] CT Scan [address] [place] [address] Mayco Rangel MD Discharge Disposition: Home or Self Care 01/02/2025 Refill [facility] Physical Medicine and Rehabilitation - [place] [address] [place] [phone] Valdez العراقي Jr., MD 01/01/2025 Orders Only [facility] Physical Medicine and Rehabilitation - [place] [address] [place] [phone] Valdez العراقي Jr., MD 12/28/2024 Orders Only [facility] Integrated Provider [address] [place] [address] Mayco Rangel MD History of malignant neoplasm of ovary (Primary Dx) 12/24/2024 External Device Data STL ABSTRACTION Provider, Abstract 12/23/2024 External Device Data STL ABSTRACTION Provider, Abstract 12/20/2024 Prep for Surgery [facility] Neurosurgery - [facility] [address] [facility] [address] [place] [phone] Moses Fontaine MD Neurogenic claudication due to lumbar spinal stenosis (Primary Dx) 12/18/2024 External Device Data STL ABSTRACTION Provider, Abstract from Last 3 Months Immunizations Immunization Administration Dates Next Due (ADACEL/BOOSTRIX)(10 YR UP) TDAP VACCINE, 0.5ML, IM 05/28/2024 (PNEUMOVAX 23)(50 YRS UP) PN EUMOCOCCAL POLYSACCHARIDE (PPV23) 0.5 ML, IM 07/11/2018 (PREVNAR 20)(6 WKS UP) PNEUM OCOCCAL CONJUGATE VACCINE 20-VALENT (PCV20), POLYSACCHARIDE [id number] CONJUGATE, ADJUVANT 0.5 ML (PF) IM 12/13/2022 (SPIKEVAX) (12 YRS UP PRIMAR Y SERIES) COVID-19 VACCINE - [id number](PF) 100 MCG/0.5 ML IM SUSP 05/10/2021,04/06/2021 INFLUENZA VACCINE HIGH DOSE QUADRIVALENT 65 YR UP PF IM 08/24/2023,08/04/2021 INFLUENZA VACCINE HIGH DOSE TRIVALENT SPLIT VIRUS, (65 YR UP), 0.5ML (PF), IM 07/17/2024 INFLUENZA VACCINE QUADRIVALE NT 3 YR UP PF IM 07/11/2018 INFLUENZA VACCINE QUADRIVALE NT 6 MOS UP PF IM 07/11/2018 Influenza Seasonal Unspecifi ed Formulation IM 08/16/2022,07/07/2020,08/02/2019 Family History Medical History Relation Name Comments Other Brother 1 samuel triple by pass Cancer Brother 2 Earl Other Brother 2 Earl suicide Diabetes Father Harish Hypertension Father Harish Stroke Father Harish Colon Cancer Mother Fatou 1971 Ovarian Cancer Mother Fatou Heart Disease Sister Ольга Breast Cancer Neg Hx Relation Name Status Comments Brother 1 samuel Brother 2 Earl Father Harish Mother Fatou Sister Ольга Social History Tobacco Use Types Packs/Day Years Used Date Smoking Tobacco: Never Passive Smoke Exposure: Never Smokeless Tobacco: Never Tobacco Cessation:Counseling Given: Not Answered Alcohol Use Standard Drinks/Week Comments Never 0 [...] on file Legal 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 Gender Identity Not on file Sexual Orientation Not on file Last Filed Vital Signs Vital Sign Reading Time Taken Comments Blood Pressure 138/68 02/26/2025 12:14 PM CDT Pulse 72 02/26/2025 12:14 PM CDT Temperature 36.8 C (98.2 F) 02/26/2025 12:14 PM CDT Respiratory Rate 18 02/26/2025 12:14 PM CDT Oxygen Saturation 100% 02/26/2025 12:14 PM CDT Inhaled Oxygen Concentration - - Weight 83.9 kg (185 lb) 02/22/2025 9:00 AM CDT Height 172.7 cm (5' 8 ) 02/19/2025 9:20 PM CDT Body Mass Index 28.13 02/19/2025 9:20 PM CDT Plan of Treatment Upcoming Encounters Date Type Department Care Team (Late st Contact Info) Description 03/05/2025 1:00 PM CDT Office Visit [facility] [address] [place] [phone] Rola Orourke MD [address] [place] [address] [address] [place] [address] 03/07/2025 1:00 PM CDT Office Visit [facility] Neurosurgery - [facility] [place] [address] [facility] [address] [place] [address] Shirley Lux PA [address] [facility] [address] [place] [address] 04/01/2025 2:00 PM CDT Office Visit [facility] - Ophthalmology [address] [facility] [address] [place] [address] Ricky Almazan MD [address] [facility] [address] [place] [address] 05/29/2025 2:30 PM CDT Office Visit [facility] [address] [place] [address] Radha Martin MD [address] [place], [place] [address] [place] [address] 08/28/2025 2:00 PM PERSONAL DRIVER Office Visit [facility] [address] [place] [address] Radha Martin MD [address] [place], [place] [address] [place] [address] Health Maintenance Due Date Last Done Comments FLEX SIG/CT COLONOGRAPHY Q 5 YEARS (AUTO ORDER) 1970 COLORECTAL CANCER SCREENING (AUTO ORDER) 1997 COLORECTAL SCREENING 1997 Flex Sig/CT Colonography Q 5 years 1997 ZOSTER VACCINE (1 of 2) 2002 RSV VACCINE (60+ or ) (1 - Risk 60-74 years 1-dose series) 2012 COVID-19 Vaccine (3 - 2023-2 5 season) 2024 05/10/2021, 04/06/2021 KHE uACR (Auto Order) 10/16/2024 03/01/2024 , 12/13/2022, 11/19/2021, Additional history exists Medicare Advantage ([place]) Preventative Visit/Annual Wellness Visit 10/16/2024 07/17/2024, 12/13/2022, 12/08/2021, Additional history exists BREAST CANCER SCREENING 12/25/2024 12/26/19 24, 11/02/2022, 11/02/2022, Additional history exists FIT/FOBT Q 1 YEAR (AUTO ORDER) 02/22/2025 02/23/2024 , 02/02/2021 FIT/FOBT Q 1 year 02/22/2025 02/23/2024, 02/02/2021 DIABETES MICROALBUMIN ANNUAL SCREEN 03/01/2025 03/01/2024, 12/13/2022, 11/19/2021, Additional history exists DIABETES HBA1C Q 6 MONTHS 05/21/20252024, 11/21/2024, 07/17/2024, Additional history exists DIABETES ANNUAL FOOT EXAM 07/17/20252023, 12/13/2022, 02/01/2021 DIABETES ANNUAL RETINAL EXAM 08/20/202502/2024, 08/20/2024, 08/20/2024, Additional history exists DIABETES: A1C (Auto Order) 11/21/202511/21, 11/21/2024, 07/17/2024, Additional history exists LDL CHOLESTEROL ANNUAL 11/21/2025 , 03/01/2024, 12/29/2022, Additional history exists Colorectal Cancer Screening (AUTO ORDER) 12/27/2025 Colorectal Cancer Screening 12/27/2025 FIT-DNA Q 3 years 12/27/2025 12/27/2022, 01/09/2019 FIT/ DNA Q 3 YEARS (AUTO ORDER) 12/27/2025 12/27/2022, 12/27/2022, 01/09/2019 OSTEOPOROSIS SCREENING 11/02/2027 , 11/02/2022, 01/16/2019 DTAP/TDAP/TD VACCINES (2 - T d or Tdap) 05/28/2034 05/28/2024 PNEUMOCOCCAL VACCINE 50+ YEARS Completed 12/13/2022 , 07/11/2018 INFLUENZA VACCINE Completed 07/17/2024, , 08/16/2022, Additional history exists KHE eGFR (Auto Order) Completed 02/23/2025 , 02/21/2025, 02/20/2025, Additional history exists Medical Devices Implanted Type Area Lithograph Press Operator Tinware Device Identifier Shelf Expiration Date Model / Serial / Lot Duragen + 2x2in Dp-102 - [id number] Implanted:Qty : 1 on 02/05/2025 by Moses Fontaine MD at [facility] Graft N/A: Spine Lumbar [employer] [id number] 06/15/2027 [id number] / / [id number] Hemostatic Surgiflo 8ml W/ Thrombin 2993 - [id number] Implanted:Qty : 1 on 02/05/2025 by Moses Fontaine MD at [facility] Hemostatic N/A: Spine Lumbar [employer] [id number] 04/14/2026 299 / / [id number] Hemostatic Surgifoam 1gm 1977 - [id number] Implanted:Qty : 1 on 02/05/2025 by Moses Fontaine MD at [facility] Hemostatic N/A: Spine Lumbar [employer] [id number] 08/21/20261977 / / [id number] Procedures Procedure Name Priority Date/Time Associated Diagnosis Comments POC GLUCOSE Routine 02/26/2025 2:50 PM CDT POC GLUCOSE Routine 02/26/2025 7:52 AM CDT POC GLUCOSE Routine 02/25/2025 10:56 PM CDT POC GLUCOSE Routine 02/25/2025 7:32 PM CDT POC GLUCOSE Routine 02/25/2025 10:33 AM CDT POC GLUCOSE Routine 02/24/2025 10:44 PM CDT POC GLUCOSE Routine 02/24/2025 6:46 PM CDT POC GLUCOSE Routine 02/24/2025 12:46 PM CDT POC GLUCOSE Routine 02/24/2025 10:24 AM CDT CBC WITH DIFFERENTIAL Stat 02/24/2025 9:37 AM CDT POC GLUCOSE Routine 02/23/2025 10:09 PM CDT POC GLUCOSE Routine 02/23/2025 6:45 PM CDT POC GLUCOSE Routine 02/23/2025 2:17 PM CDT POC GLUCOSE Routine 02/23/2025 9:44 AM CDT BASIC METABOLIC PANEL Routine 02/23/2025 9:35 AM CDT CBC WITHOUT DIFFERENTIAL Routine 02/23/2025 9:35 AM CDT URINALYSIS W/REFLEX MICROSCOPIC Routine 02/23/2025 12:34 AM CDT URINE CULTURE Routine 02/23/2025 12:34 AM CDT POC GLUCOSE Routine 02/22/2025 9:56 PM CDT POC GLUCOSE Routine 02/22/2025 5:54 PM CDT POC GLUCOSE Routine 02/22/2025 12:59 PM CDT POC GLUCOSE Routine 02/21/2025 6:57 PM CDT MRI LUMBAR W WO CONTRAST Pending Discharge 02/21/2025 4:04 PM CDT POC GLUCOSE Routine 02/21/2025 12:53 PM CDT BASIC METABOLIC PANEL Routine 02/21/2025 9:50 AM CDT CBC WITH DIFFERENTIAL Routine 02/21/2025 9:50 AM CDT POC GLUCOSE Routine 02/20/2025 9:55 PM CDT POC GLUCOSE Routine 02/20/2025 3:00 PM CDT C-REACTIVE PROTEIN Routine 02/20/2025 2: 47 PM CDT BASIC METABOLIC PANEL Routine 02/20/2025 2:47 PM CDT CBC WITH DIFFERENTIAL Routine 02/20/2025 2:47 PM CDT POC GLUCOSE Routine 02/20/2025 9:32 AM CDT MRI LUMBAR W WO CONTRAST Routine 02/20/2025 9:06 AM CDT POC GLUCOSE Routine 02/19/2025 11:22 PM CDT POC GLUCOSE Routine 02/19/2025 1:49 PM CDT POC GLUCOSE Routine 02/19/2025 9:24 AM CDT TELEMETRY REPORT 02/19/2025 9:06 AM CDT POC GLUCOSE Routine 02/18/2025 10:33 PM CDT BASIC METABOLIC PANEL Routine 02/18/2025 12:26 PM CDT CBC WITHOUT DIFFERENTIAL Routine 02/18/2025 12:26 PM CDT POC GLUCOSE Routine 02/17/2025 7:21 PM CDT POC GLUCOSE Routine 02/17/2025 2:38 PM CDT POC GLUCOSE Routine 02/17/2025 8:33 AM CDT POC GLUCOSE Routine 02/17/2025 12:26 AM CDT POC GLUCOSE Routine 02/16/2025 6:23 PM CDT POC GLUCOSE Routine 02/16/2025 2:40 PM CDT POC GLUCOSE Routine 02/16/2025 9:47 AM CDT POC GLUCOSE Routine 02/15/2025 11:06 PM CDT POC GLUCOSE Routine 02/15/2025 6:02 PM CDT POC GLUCOSE Routine 02/15/2025 1:29 PM CDT POC GLUCOSE Routine 02/15/2025 8:06 AM CDT POC GLUCOSE Routine 02/15/2025 12:52 AM CDT POC GLUCOSE Routine 02/14/2025 6:51 PM CDT POC GLUCOSE Routine 02/14/2025 1:31 PM CDT IR SPINAL INTERVENTION Routine 02/14/2025 12:50 PM CDT TELEMETRY REPORT 02/14/2025 12:48 PM CDT POC GLUCOSE Routine 02/14/2025 8:28 AM CDT POC GLUCOSE Routine 02/13/2025 9:51 PM CDT POC GLUCOSE Routine 02/13/2025 6:33 PM CDT POC GLUCOSE Routine 02/13/2025 2:[address] THORACIC LUMBAR WO CONTRAST Stat 02/13/2025 1:34 PM CDT POC GLUCOSE Routine 02/13/2025 8:36 AM CDT POC GLUCOSE Routine 02/12/2025 9:05 PM CDT POC GLUCOSE Routine 02/12/2025 5:51 PM CDT IR SPINAL INTERVENTION Routine 02/12/2025 4:22 PM CDT POC GLUCOSE Routine 02/12/2025 12:41 PM CDT POC GLUCOSE Routine 02/12/2025 7:55 AM CDT POC GLUCOSE Routine 02/11/2025 7:41 PM CDT POC GLUCOSE Routine 02/11/2025 3:06 PM CDT POC GLUCOSE Routine 02/11/2025 10:18 AM CDT POC GLUCOSE Routine 02/10/2025 1:48 PM CDT BASIC METABOLIC PANEL Routine 02/10/2025 11:23 AM CDT CBC WITH DIFFERENTIAL Routine 02/10/2025 11:23 AM CDT POC GLUCOSE Routine 02/10/2025 11:05 AM CDT TELEMETRY REPORT 02/10/2025 10:35 AM CDT POC GLUCOSE Routine 02/09/2025 11:56 PM CDT POC GLUCOSE Routine 02/09/2025 12:56 PM CDT POC GLUCOSE Routine 02/09/2025 8:34 AM CDT POC GLUCOSE Routine 02/08/2025 10:00 PM CDT POC GLUCOSE Routine 02/08/2025 6:12 PM CDT POC GLUCOSE Routine 02/08/2025 1:38 PM CDT POC GLUCOSE Routine 02/08/2025 9:07 AM CDT POC GLUCOSE Routine 02/07/2025 10:42 PM CDT POC GLUCOSE Routine 02/07/2025 5:05 PM CDT BASIC METABOLIC PANEL Routine 02/07/2025 1:57 PM CDT TELEMETRY REPORT 02/07/2025 1:16 PM CDT POC GLUCOSE Routine 02/07/2025 12:40 PM CDT POC GLUCOSE Routine 02/07/2025 8:28 AM CDT POC GLUCOSE Routine 02/07/2025 8:27 AM CDT POC GLUCOSE Routine 02/06/2025 8:49 PM CDT POC GLUCOSE Routine 02/06/2025 2:09 PM CDT HEMOGLOBIN AND HEMATOCRIT Routine 02/06/2025 1:15 PM CDT POC GLUCOSE Routine 02/06/2025 9:50 AM CDT BASIC METABOLIC PANEL Routine 02/06/2025 7:41 AM CDT HEMOGLOBIN AND HEMATOCRIT Routine 02/06/2025 7:41 AM CDT POC GLUCOSE Routine 02/05/2025 10:22 PM CDT POC GLUCOSE Routine 02/05/2025 5:54 PM CDT POC GLUCOSE Routine 02/05/2025 2:30 PM CDT XR FLUORO LESS THAN 1 HOUR Routine 02/05/2025 12:45 PM CDT POC GLUCOSE Routine 02/05/2025 10:40 AM CDT DC ANES INSERT ENDOTRACHEAL AIRWAY Routine 02/05/2025 7:08 AM CDT DC [place] FACETECTOMY&FORAMOT 1 VRT SGM EA ADDL SGM 02/05/2025 6:30 AM CDT Spinal stenosis of lumbar region with neurogenic claudication POC GLUCOSE Routine 02/05/2025 6:30 AM CDT TYPE AND SCREEN Routine 01/24/2025 3:24 PM CDT URINALYSIS W/REFLEX MICROSCOPIC Routine 01/24/2025 3:24 PM CDT PTT Routine 01/24/2025 3:24 PM CDT PROTIME-INR Routine 01/24/2025 3:24 PM CDT COMPREHENSIVE METABOLIC PANEL Routine 01/24/2025 3:24 PM CDT CBC WITHOUT DIFFERENTIAL Routine 01/24/2025 3:24 PM CDT URINE CULTURE Routine 01/24/2025 3:[address] CHEST ABDOMEN PELVIS W CONT Routine 01/03/2025 12:59 PM CDT History of mal [id number]|2025-03-01 07:43:00|2025-03-01 07:43:00|XMS_ITS|BKG DAEMON|External Medical Summaries|[id number]|" Encounter Summary Created on: March 01, 2025 Terra [place] : 1950 Sex: Female Author Organization [employer] [facility] Address [address] [place] [address] Care Team Providers Care Senior Oracle Applications Developer Name Role Phone Radha Martin MD Primary Care Provider Encounter Details Date Type Department Care Team (Late Contact Info) Description 09/27/1999 Outpatient Historical [facility] Steven Lui MD [address] [place] [address] Er, Authorized P NO ADDRESS ON FILE Other specified cardiac dysrhythmias(427.89 ) (Primary Dx) Social History Tobacco Use Types Packs/Day Years Used Date Smoking Tobacco: Never Assessed Comments Unknown Sex and Gender Information Value Date Recorded Sex Assigned at Not on file Legal 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 Gender Identity Not on file Sexual Orientation Not on file documented as of this encounter Plan of Treatment Upcoming Encounters Date Type Department Care Team (Late Contact Info) Description 03/05/2025 1:00 PM CDT Office Visit [facility] [address] [place] [address] Rola Orourke MD [address] [place] [address] [place] [address] 03/07/2025 1:00 PM CDT Office Visit [facility] Neurosurgery - [place] [address] [facility] [address] [place] [address] Shirley Lux PA [address] [facility] [address] [place] [address] 04/01/2025 2:00 PM CDT Office Visit [facility] - Op[facility]mology [address] [facility] [address] [place] [address] Ricky Almazan MD [address] [facility] [address] [place] [address] 05/29/2025 2:30 PM CDT Office Visit [facility] [address], [place] [address] Radha Martin MD [address] [place] [phone] 08/28/2025 2:00 PM PERSONAL DRIVER Office Visit [facility] [address] [address] Radha Martin MD [address] [place] [phone] documented as of this encounter Visit Diagnoses Diagnosis Other specified cardiac dysrhythmias(427.89)- Primary Other specified cardiac dysrhythmias documented in this encounter Care Teams Senior Oracle Applications Developer Relationship Specialty Start Date End Date Radha Martin MD [address] [place] [phone] PCP - General Family Practice 11/14/24 documented as of this encounter "
--- OUTSIDE RECORDS SUMMARY | 2025-03-01 07:43 | XMS_ITS | Encounter Summary ---
Author Organization [facility] Address [address] [place] [address] Care Team Providers Care English Horn Player Name Role Phone Radha Martin MD Primary Care Provider Reason for Visit * Reason Comments Question Encounter Details Date Type Department Care Team (Late st Contact Info) Description 11/07/2024 Telephone [facility] Medicine [place] [address] [facility] [address] [place] [address] Rach Hardy, [address] [address] Question Social History Tobacco Use Types Packs/Day Years [...] who hurts you emotionally and/or physically? No 08/20/2024 Comments No Sex and Gender Information Value Date Recorded Sex Assigned at Not on file Legal Sex Female 5:15 AM SHIPPING PROCESSOR Gender Identity Not on file Sexual Orientation Not on file documented as of this encounter Miscellaneous Notes * Telephone Encounter - Flor Crenshaw - 11/07/2024 3:13 PM CST Copied from [facility] #[id number]. Topic: CPA Information Request - Paperwork Requests >> Nov 07, 2024 2:40 PM Flor Rivera wrote: Caller Name: [place] Callback Number: [phone] Call Notes (not required): Caller is requesting: Other: pt has to have gp letter sent in order to proceed with getting surgerypt says letter is done every few years or so by Dr. Hardy and she's needing it done for her surgery scheduled Has the patient been seen for this in the last 3 months? Yes Reason for Request: surgical cory Where was paperwork submitted: Dropped off nothing needed to be submitted How does patient want paperwork received: supervisor paper coating at clinic (by who): the patient Paperwork Due Date: before next month Pt would like call back from nurse PING PROCESSOR documented in this encounter Plan of Treatment Upcoming Encounters Date Type Department Care Team (Late st Contact Info) Description 03/05/2025 1:00 PM CDT Office Visit [facility] [address] [place] [address] Rola Orourke MD [address] [place] [address] [address] [place] [address] 03/07/2025 1:00 PM CDT Office Visit [facility] Neurosurgery - Medical [place] [address] [facility] [address] [place] [address] Shirley Lux PA [address] [facility] [address] [place] [address] 04/01/2025 2:00 PM CDT Office Visit [facility] Eye Specialists - [facility] [address] - Ophthalmology [address] [facility] [address] [place] [address] Ricky Almazan MD [address] [facility] [address] [facility] [address] [place] [address] 05/29/2025 2:30 PM CDT Office Visit [facility] [address] [place], [place] [address] Radha Martin MD [address] [place] [address] 08/28/2025 2:00 PM SHIPPING PROCESSOR Office Visit [facility] [address] [address] Radha Martin MD [address] [place] [address] documented as of this encounter Visit Diagnoses Not on filedocumented in this encounter Additional Health Concerns Assessment Noted Time PHQ-9 Depression Total Score: 2 09/11/20 24 11:48 AM SHIPPING PROCESSOR documented as of this encounter Care Teams English Horn Player Relationship Specialty Start Date End Date Radha Martin MD [address] [place] [phone] PCP - General Family Practice 11/14/24 documented as of this encounter
--- OUTSIDE RECORDS SUMMARY | 2025-03-01 07:43 | XMS_ITS ---
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 Past Treatment and Therapy Plans No past plan information found. 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 9) with comorbidity 01/01/2018 12/08/2021
--- OUTSIDE RECORDS SUMMARY | 2025-03-01 07:43 | XMS_ITS | Encounter Summary ---
Author Organization [facility] Address [address] [place] [address] Care Team Providers Care Senior Clinical Research Scientist Name Role Phone Radha Martin MD Primary Care Provider Encounter Details Date Type Department Care Team (Latest Contact Info) Description 07/05/2002 Outpatient Historical [facility] Yamil Rae MD [address] [facility] [address] [place] [address] ROUTINE MEDICAL EXAM (Primary Dx) Social History Tobacco Use Types Packs/Day Years Used Date Smoking Tobacco: Never Assessed Comments Unknown Sex and Gender Information Value Date Recorded Sex Assigned at Not on file Legal Sex Female 5:15 AM KETTLE FRY COOK OPERATOR Gender Identity Not on file Sexual Orientation Not on file documented as of this encounter Plan of Treatment Upcoming Encounters Date Type Department Care Team (Late st Contact Info) Description 03/05/2025 1:00 PM CDT Office Visit [facility] [address] [place] [id number] [facility] [address] [place] [address] Rola Orourke MD [address] [facility] [address] [place] [address] 03/07/2025 1:00 PM CDT Office Visit [facility] Neurosurgery - Medical [place] [address] [facility] [address] [place] [address] Shirley Lux PA [address] [facility] [address] [place] [address] 04/01/2025 2:00 PM CDT Office Visit [facility] Eye Specialists - [facility] [address] [address] - Ophthalmology [address] [facility] [address] [place] [address] Ricky Almazan MD [address] [facility] [address] [place] [address] 05/29/2025 2:30 PM CDT Office Visit [facility] [address] [place] [address] Radha Martin MD [address] [place] [address] 08/28/2025 2:00 PM KETTLE FRY COOK OPERATOR Office Visit [facility] [address] [address] Radha Martin MD [address] [place] [phone] documented as of this encounter Visit Diagnoses Diagnosis Routine general medical examination at a health care facility- Primary documented in this encounter Care Teams Senior Clinical Research Scientist Relationship Specialty Start Date End Date Radha Martin MD [address] [place] [phone] PCP - General Family Practice 11/14/24 documented as of this encounter
--- OUTSIDE RECORDS SUMMARY | 2025-03-01 07:43 | XMS_ITS | Encounter Summary ---
Author Organization [facility] Address [address] [place] [address] Care Team Providers Care Coding Support Specialist Name Role Phone Radha Martin MD Primary Care Provider Encounter Details Date Type Department Care Team (Late st Contact Info) Description 02/25/2025 Hospital Encounter [facility] Comprehensive Unit [address] [facility] [address] [place] [address] [place] [address] [place] [address] Social History Tobacco Use Types Packs/Day Years [...] on file Legal Sex Female 5:15 AM VALET PARKER Gender Identity Not on file Sexual Orientation Not on file documented as of this encounter Plan of Treatment Upcoming Encounters Date Type Department Care Team (Late st Contact Info) Description 03/05/2025 1:00 PM CDT Office Visit [facility] [address] [place] [address] Rola Orourek MD [address] [facility] [address] [place] [address] 03/07/2025 1:00 PM CDT Office Visit [facility] Neurosurgery - Medical [place] [address] [facility] [address] [place] [address] Shirley Lux PA [address] [facility] [address] [place] [address] 04/01/2025 2:00 PM CDT Office Visit [facility] Eye Specialists - [facility] - Ophthalmology [address] [facility] [address] [place] [address] Ricky Almazan MD [address] [facility] [address] [place] [address] 05/29/2025 2:30 PM CDT Office Visit [facility] [address] [place] [address] Radha Martin MD [address] [place] [phone] 08/28/2025 2:00 PM VALET PARKER Office Visit [facility] [address] [place] [address] [address] [address] Radha Martin MD [address] [place] [address] documented as of this encounter Visit Diagnoses Not on filedocumented in this encounter Additional Health Concerns Assessment Noted Time PHQ-9 Depression Total Score: 5 11/14/19 1:59 PM VALET PARKER documented as of this encounter Care Teams Coding Support Specialist Relationship Specialty Start Date End Date Radha Martin MD [address] [place] [phone] PCP - General Family Practice 11/14/24 documented as of this encounter
--- OUTSIDE RECORDS SUMMARY | 2025-03-01 07:43 | XMS_ITS | Encounter Summary ---
Author Organization [employer] Address [address] [place] [address] Care Team Providers Care Stock Order Lister Name Role Phone Radha Martin MD Primary Care Provider Encounter Details Date Type Department Care Team (Latest Contact Info) Description 03/19/2004 Outpatient Historical [facility] Malloy, Kelsey King MD NO ADDRESS ON FILE PURE HYPERCHOLESTEROLEM (Primary Dx) Social History Tobacco Use Types Packs/Day Years Used Date Smoking Tobacco: Never Assessed Comments Unknown Sex and Gender Information Value Date Recorded Sex Assigned at Not on file Legal Sex Female 5:15 AM DIRECTOR OF MANUFACTURING OPERATIONS Gender Identity Not on file Sexual Orientation Not on file documented as of this encounter Plan of Treatment Upcoming Encounters Date Type Department Care Team (Late st Contact Info) Description 03/05/2025 1:00 PM CDT Office Visit [facility] [address] [place] [address] Rola Orourke MD [facility] [address] [place] [address] 03/07/2025 1:00 PM CDT Office Visit [facility] Neurosurgery - Medical [place] [address] [facility] [address] [place] [address] Shirley Lux PA [address] [facility] [address] [place], [place] [id number] 04/01/2025 2:00 PM CDT Office Visit [facility] Eye Specialists - [address] [address] - Ophthalmology [address] [facility] [address] [place] [address] Ricky Almazan MD [address] [facility] [address] [place] [address] 05/29/2025 2:30 PM CDT Office Visit [facility] [address] [address] Radha Martin MD [address] [place] [address] 08/28/2025 2:00 PM DIRECTOR OF MANUFACTURING OPERATIONS Office Visit [facility] [address] [address] Radha Martin MD [address] [place] [phone] documented as of this encounter Visit Diagnoses Diagnosis Pure hypercholesterolemia- Primary documented in this encounter Care Teams Stock Order Lister Relationship Specialty Start Date End Date Radha Martin MD [address] [place] [phone] PCP - General Family Practice 11/14/24 documented as of this encounter
--- OUTSIDE RECORDS SUMMARY | 2025-03-01 07:43 | XMS_ITS | Encounter Summary ---
Author Organization [facility] Address 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) Social History Tobacco Use Types Packs/Day Years Used Date Smoking Tobacco: Never Assessed Comments Unknown Sex and Gender Information Value Date Recorded Sex Assigned at Not on file Legal Sex Female 5:15 AM FOOD AND NUTRITION SERVICES SUPERVISOR Gender Identity Not on file Sexual Orientation Not on file documented as of this encounter Plan of Treatment Upcoming Encounters Date Type Department Care Team (Late st Contact Info) Description 03/05/2025 1:00 PM CDT Office Visit [facility] [address] [place] [address] Rola Orourke MD [address] [place] [address] [address] [place] [address] 03/07/2025 1:00 PM CDT Office Visit [facility] Neurosurgery - Medical [place] [address] [facility] [address] [place] [address] Shirley Lux PA [address] [facility] [address] [place], [place] [id number] 04/01/2025 2:00 PM CDT Office Visit [facility] Eye Specialists - [address] - Ophthalmology [address] [facility] [address] [place] [address] Ricky Almazan MD [address] [facility] [address] [place] [address] 05/29/2025 2:30 PM CDT Office Visit [facility] [address] [address] Radha Martin MD [address] [place] [phone] 08/28/2025 2:00 PM FOOD AND NUTRITION SERVICES SUPERVISOR Office Visit [facility] [address] [address] Radha Martin MD [address] [place] [phone] documented as of this encounter Visit Diagnoses Diagnosis Mitral valve disorders(424.0)- Primary Mitral valve disorders documented in this encounter Care Teams Bullet Lubricant Mixer Relationship Specialty Start Date End Date Radha Martin MD [address] [place] [phone] PCP - General Family Practice 11/14/24 documented as of this encounter
--- OUTSIDE RECORDS SUMMARY | 2025-03-01 07:43 | XMS_ITS | Encounter Summary ---
Author Organization [employer] Address [address] [place] [address] Care Team Providers Care Radio Adjuster Name Role Phone Radha Martin MD Primary Care Provider Encounter Details Date Type Department Care Team (Late st Contact Info) Description 03/08/2000 Outpatient Historical [facility] Baylee Peterson MD NO ADDRESS ON FILE Social History Tobacco Use Types Packs/Day Years Used Date Smoking Tobacco: Never Assessed Comments Unknown Sex and Gender Information Value Date Recorded Sex Assigned at Not on file Legal Sex Female 5:15 AM MATCH UP WORKER Gender Identity Not on file Sexual Orientation Not on file documented as of this encounter Plan of Treatment Upcoming Encounters Date Type Department Care Team (Late Contact Info) Description 03/05/2025 1:00 PM CDT Office Visit [facility] [address] [place] [address] Rola Orourke MD [address] [place] [address] [address] [place] [address] 03/07/2025 1:00 PM CDT Office Visit [facility] Neurosurgery - Medical [place] [address] [facility] [address] [place] [address] Shirley Lux PA [address] [facility] [address] [place], [place] [id number] 04/01/2025 2:00 PM CDT Office Visit [facility] Eye Specialists - [address] - Ophthalmology [address] [facility] [address] [place] [place] [address] Ricky Almazan MD [address] [facility] [address] [place] [address] 05/29/2025 2:30 PM CDT Office Visit [facility] [address] [address] Radha Martin MD [address] [place] [phone] 08/28/2025 2:00 PM MATCH UP WORKER Office Visit [facility] [address] [address] Radha Martin MD [address] [place] [phone] documented as of this encounter Visit Diagnoses Not on filedocumented in this encounter Care Teams Radio Adjuster Relationship Specialty Start Date End Date Radha Martin MD [address] [place] [phone] PCP - General Family Practice 11/14/24 documented as of this encounter
--- OUTSIDE RECORDS SUMMARY | 2025-03-01 07:43 | XMS_ITS | Encounter Summary ---
Author Organization [facility] Address [address] [place] [address] Care Team Providers Care Outpatient Dietitian Name Role Phone Radha Martin MD Primary Care Provider Reason for Visit * Reason Onset Date Comments rx refill 08/21/2024 Encounter Details Date Type Department Care Team (Late st Contact Info) Description 08/21/2024 Telephone [facility] Physical Medicine and Rehabilitation - [place] [id number] [place] [address] [address] [place] [address] [place] [address] [facility] [address] [place] [address] rx refill Social History Tobacco Use Types Packs/Day Years [...] on file Legal Sex Female 5:15 AM MOLD SANDER Gender Identity Not on file Sexual Orientation Not on file documented as of this encounter Miscellaneous Notes * Telephone Encounter - Robert Landin - 08/21/2024 11:38 AM CST Lvm informing pt that per Dr العراقي rx for tizanidine was filled for a qty 90 days and sent to her mail order pharmacy SANDER documented in this encounter Plan of Treatment Upcoming Encounters Date Type Department Care Team (Late st Contact Info) Description 03/05/2025 1:00 PM CDT Office Visit [facility] [address] [place] [address] Rola Orourke MD [address] [facility] [place] [address] [place] [address] 03/07/2025 1:00 PM CDT Office Visit [facility] Neurosurgery - Medical [place] [address] [facility] [address] [place] [address] Shirley Lux PA [address] [facility] [address] [place] [address] 04/01/2025 2:00 PM CDT Office Visit [facility] Eye Specialists - [facility] - Ophthalmology [address] [facility] [address] [place] [address] Ricky Almazan MD [address] [facility] [address] [place] [address] 05/29/2025 2:30 PM CDT Office Visit [facility] [address] [address] Radha Martin MD [address] [place] [address] 08/28/2025 2:00 PM MOLD SANDER Office Visit [facility] [address] [address] Radha Martin MD [address] [place] [address] documented as of this encounter Visit Diagnoses Not on filedocumented in this encounter Additional Health Concerns Assessment Noted Time PHQ-9 Depression Total Score: 2 07/16/20 24 1:49 PM CDT documented as of this encounter Care Teams Outpatient Dietitian Relationship Specialty Start Date End Date Radha Martin MD [address] [place] [address] PCP - General Family Practice 11/14/24 documented as of this encounter
--- OUTSIDE RECORDS SUMMARY | 2025-03-01 07:43 | XMS_ITS | Encounter Summary ---
Author Organization [employer] Address [address] [place] [address] Care Team Providers Care Yacht Captain Name Role Phone Radha Martin MD Primary Care Provider Encounter Details Date Type Department Care Team (Latest Contact Info) Description 02/28/2000 Outpatient Historical [facility] BrodieSteven muñiz MD [address] [address] Disorders of bursae and tendons in shoulder region, unspecified (Primary Dx) Social History Tobacco Use Types Packs/Day Years Used Date Smoking Tobacco: Never Assessed Comments Unknown Sex and Gender Information Value Date Recorded Sex Assigned at Not on file Legal Sex Female 5:15 AM OVEN ROASTER Gender Identity Not on file Sexual Orientation Not on file documented as of this encounter Plan of Treatment Upcoming Encounters Date Type Department Care Team (Late st Contact Info) Description 03/05/2025 1:00 PM CDT Office Visit [facility] [address] [place] [address] Rola Orourke MD [address] [facility] [address] [place] [address] 03/07/2025 1:00 PM CDT Office Visit [facility] Neurosurgery - Medical [place] [address] [facility] [address] [place] [address] Shirley Lux PA [address] [facility] [address] [place] [address] 04/01/2025 2:00 PM CDT Office Visit [facility] Eye Specialists - [facility] [address] - Ophthalmology [address] [facility] [address] [place] [address] Ricky Almazan MD [address] [facility] [address] [place] [address] 05/29/2025 2:30 PM CDT Office Visit [facility] [address] [place] [address] Radha Martin MD [address] [place] [address] 08/28/2025 2:00 PM OVEN ROASTER Office Visit [facility] [address] [address] Radha Martin MD [address] [place] [address] documented as of this encounter Visit Diagnoses Diagnosis Disorders of bursae and tendons in shoulder region, unspecified- Primary documented in this encounter Care Teams Yacht Captain Relationship Specialty Start Date End Date Radha Martin MD [address] [place] [address] PCP - General Family Practice 11/14/24 documented as of this encounter
--- OUTSIDE RECORDS SUMMARY | 2025-03-01 07:43 | XMS_ITS | Encounter Summary ---
Author Organization [facility] Address [address] [place] [address] Care Team Providers Care [employer] Name Role Phone Radha Martin MD Primary Care Provider Encounter Details Date Type Department Care Team (Latest Contact Info) Description 06/24/2003 Outpatient Historical [facility] GalabbetoCarrington rodriguez MD [address] [facility] [address] [place] [address] ENTHESOPATHY OF HIP (Primary Dx) Social History Tobacco Use Types Packs/Day Years Used Date Smoking Tobacco: Never Assessed Comments Unknown Sex and Gender Information Value Date Recorded Sex Assigned at Not on file Legal Sex Female 5:15 AM [employer] Gender Identity Not on file Sexual Orientation Not on file documented as of this encounter Plan of Treatment Upcoming Encounters Date Type Department Care Team (Late st Contact Info) Description 03/05/2025 1:00 PM CDT Office Visit [facility] [address] [place] [address] Rola Orourke MD [address] [facility] [address] [place] [address] 03/07/2025 1:00 PM CDT Office Visit [facility] - Medical [place] [address] [facility] [address] [place] [address] Shirley Lux PA [address] [facility] [address] [place] [address] 04/01/2025 2:00 PM CDT Office Visit [facility] - [facility] [address] - Ophthalmology [address] [place] [address] Ricky Almazan MD [address] [place] [address] 05/29/2025 2:30 PM CDT Office Visit [facility] [address] [place] [address] Radha Martin MD [address] [place] [phone] 08/28/2025 2:00 PM [employer] Office Visit [facility] [address] [address] Radha Martin MD [address] [place] [phone] documented as of this encounter Visit Diagnoses Diagnosis Enthesopathy of hip region- Primary documented in this encounter Care Teams [employer] Relationship Specialty Start Date End Date Radha Martin MD [address] [place] [phone] PCP - General Family Practice 11/14/24 documented as of this encounter
--- NOTE | 2025-03-01 07:44 | ED.EAR ---
HPI - Ear Problem General Chief complaint: Ear Stated complaint: FB in right ear-earring Time Seen by Provider: 03/01/25 07:33 Source: patient and other Mode of arrival: ambulatory Limitations: no limitations History of Present Illness HPI Narrative: Patient presents with concern for foreign body in right ear, an earring in particular. She experienced a sharp pain and her earring was no longer in her earlobe. She feels a sensation in her ear. Can't find the earring at home. Not having pain now. Related Data Allergies Allergy/AdvReac Type Severity Reaction Status Date / Time No Known Allergies Allergy Verified 02/28/25 23:47 Exam Const: General: healthy appearing, no acute distress and alert; No diaphoretic or ill appearing Nutritional Appearance: well nourished and not obese Orientation/consciousness: patient oriented x3 Limitations: no limitations HENMT: Head: normal to inspection, no contusions, no hematomas and no lacerations Ears: external ears normal and Abnormal EAC present (small edematous area w/ tissue punctured, not actively bleeding, ) no excessive cerumen, no erythema and no foreign body Face and sinus: normal facial exam Eyes: Conjunctivae: conjunctivae normal Direct Ophthalmoscopy: no photophobia Other: no scleral icterus Neck: Neck: normal visual inspection and no meningeal signs Resp: Effort & Inspection: normal respiratory effort, not labored, no retractions, not tachypneic and no use of accessory muscles Cardio: Rate: regular rate, not bradycardic and not tachycardic Skin: General skin exam: no jaundice and no pallor Neuro: General: patient oriented x3, moves all extremities and no focal motor deficits Speech: normal speech Psych: Mental Status: mental status grossly normal Affect: normal affect Attitude: cooperative Course Vital Signs Vital signs: Vital Signs Temperature 98.0 F 03/01/25 00:06 Pulse Rate 72 03/01/25 00:06 Respiratory Rate 16 03/01/25 00:06 Blood Pressure 86/66 L 03/01/25 00:06 Pulse Oximetry 94 03/01/25 00:06 Oxygen Delivery Room Air 03/01/25 00:06 Temperature 98.0 F 03/01/25 00:06 Pulse Rate 72 03/01/25 00:06 Respiratory Rate 16 03/01/25 00:06 Blood Pressure 86/66 L 03/01/25 00:06 Pulse Oximetry 94 03/01/25 00:06 Oxygen Delivery Room Air 03/01/25 00:06 Medical Decision Making MDM Narrative Medical decision making narrative: Patient presents with concern for FB in right ear after earing came out and she felt a sharp pain in external auditory canal. Hsa a foreign body sensation and can't find earring. In the ED she is afebrile with hypotension but MAP 72mmHg. Physical exam without foreign body. It does appear that foreign body was in at one point because of small puncture in mid external auditory canal, not actively bleeding. Patient certain foreign body still present. Has contralateral earring which is metallic. Xray as below. Discussed with patient. Discharged with Rx for APAP. Vital Signs Vital Signs: Vital Signs Temperature 98.0 F 03/01/25 00:06 Pulse Rate 72 03/01/25 00:06 Respiratory Rate 16 03/01/25 00:06 Blood Pressure 86/66 L 03/01/25 00:06 Pulse Oximetry 94 03/01/25 00:06 Oxygen Delivery Room Air 03/01/25 00:06 Temperature 98.0 F 03/01/25 00:06 Pulse Rate 72 03/01/25 00:06 Respiratory Rate 16 03/01/25 00:06 Blood Pressure 86/66 L 03/01/25 00:06 Pulse Oximetry 94 03/01/25 00:06 Oxygen Delivery Room Air 03/01/25 00:06 Imaging Data Radiologist's impression: IMPRESSION: 1. No radiopaque foreign bodies in the region of the external auditory canals. Discharge Plan Discharge Clinical Impression: Otalgia of right ear, Injury of external auditory canal Patient Disposition: Home Condition: Stable Instructions: Antibiotic Form, Ear Foreign Body (ED) Additional Instructions: No foreign body seen on exam or imaging although, like we discussed, it appears that the earring might have poked the external auditory canal before falling out. Bleeding is controlled. Can take acetaminophen if pain recurrs. Follow up with your primary care physician as needed. If you do not have one the name of one is listed below. Return to the ED if changes in hearing, pus/discharge from the ear, fevers/chills, etc. Patient Language: Syriac Prescriptions: New acetaminophen 500 mg capsule 1,000 mg PO Q6H PRN (Reason: pain) Qty: 20 0RF Follow-up/Referrals: PHYSICIAN NOT ON STAFF,NONSTAFF [Primary Care Provider] - Candice Hooper DO [Physician] - Stand Alone Forms: Work/School Release IP Time of Disposition: 08:45
== END 2025-03-01 09:09 | disposition home or self-care (01) ==
PROVIDERS: Emergency Provider Student in an Organized Health Care Education/Training Program
DX: S09.91XA Unspecified injury of ear, initial encounter (principal); X58.XXXA Exposure to other specified factors, initial encounter
CPT/HCPCS: 70330; 99283